=== PATIENT | female | born 1950 | race Caucasian/White ===

== ENCOUNTER → 2018-01-11 | Outpatient (CLI) | payer OTHER ==
[~2018-01-11] MED LIST: APIX2.5T PO; CEPH-375 PO; DOXY100T10 PO; ELIQUIS; ENOX100S5 SQ; FERR1TAB2 PO; FERR325T18 PO; LEVO500T47 PO; LISI-167 PO; METO25TA35 PO; METR500T PO; NITA500T2 PO; OMEP20CA9 PO; OMEP20TA62 PO; OXYC1TAB8 PO; RANI150T4 PO; RANITIDINE; RIVA10TA PO; SERT25TA PO; SUCR1ORA11 PO; TEMA15CA6 PO; TRAM50TA2 PO
[2018-01-11 15:17] LABS: BASOPHILS # (AUTO) 0.04 x10^3/uL (0-0.1); BASOPHILS % (AUTO) 1 % (0-1); EOSINOPHILS # (AUTO) 0.15 x10^3/uL (0-0.4); EOSINOPHILS % (AUTO) 2 % (1-7); LYMPHOCYTES # (AUTO) 1.28 x10^3/uL (1-3.4); LYMPHOCYTES % (AUTO) 18 % (22-44); MD NO; MEAN CORPUSCULAR HEMOGLOBIN 28.9 pg (27.0-34.8); MEAN CORPUSCULAR HGB CONC 33.7 g/dL (32.4-35.8); MEAN CORPUSCULAR VOLUME 85.6 fL (80-100); MEAN PLATELET VOLUME 7.1 fL (7.4-10.4); MONOCYTES # (AUTO) 0.45 x10^3/uL (0.2-0.8); MONOCYTES % (AUTO) 6 % (2-9); NEUTROPHILS % (AUTO) 74 % (42-75); PLATELET COUNT 302 x10^3/uL (130-400); RED BLOOD COUNT 4.99 x10^6/uL (3.82-5.3); RED CELL DISTRIBUTION WIDTH 14.1 % (9.6-15.2)
[2018-01-11 15:31] LABS: HCT (SEDRATE) 42.4 % (34.6-47.8)
[2018-01-11 15:33] LABS: INTERNATIONAL NORMALIZED RATIO 1.03 (0.93-1.1); PROTHROMBIN TIME 10.7 Seconds (9.6-11.5)
[2018-01-11 15:39] LABS: ALANINE AMINOTRANSFERASE 16 U/L (12-78); ALBUMIN 3.6 g/dL (3.4-5.0); ANION GAP 9 mmol/L (5-15); CALCIUM 8.3 mg/dL (8.5-10.1); CHLORIDE 105 mmol/L (98-107); CREATININE 0.85 mg/dL (0.55-1.02)
[2018-01-11 15:41] LABS: BILIRUBIN,TOTAL 0.2 mg/dL (0.2-1.0)
[2018-01-11 15:42] LABS: ALKALINE PHOSPHATASE 98 U/L (45-117); TOTAL PROTEIN 7.5 g/dL (6.4-8.2)
== END | disposition home or self-care (01) ==
LOC: STAR 13:54
PROVIDERS: ATTEND Orthopaedic Surgery Orthopaedic Surgery of the Spine
DX: Z01.818 Encounter for other preprocedural examination (principal); K44.9 Diaphragmatic hernia without obstruction or gangrene; M84.48XA Pathological fracture, other site, initial encounter for fracture
CPT/HCPCS: 36415; 71046; 80053; 80074; 85025; 85610; 85651; 85730; 87806; 93005; G0475

== ENCOUNTER → 2018-01-12 | Outpatient (CLI) | payer OTHER ==
[2018-01-12 08:49] LABS: MICROSCOPIC AUTO
[2018-01-12 08:53] LABS: CULTURE INDICATED? YES
== END | disposition home or self-care (01) ==
LOC: STAR 08:10
PROVIDERS: ATTEND Orthopaedic Surgery Orthopaedic Surgery of the Spine
DX: Z01.812 Encounter for preprocedural laboratory examination (principal); M48.54XA Collapsed vertebra, not elsewhere classified, thoracic region, initial encounter for fracture
CPT/HCPCS: 81001; 87077; 87086; 87186

== ENCOUNTER 2018-01-16 07:07 | Day surgery (SDC) | payer OTHER ==
[2018-01-15 13:23] LABS: MICROSCOPIC NOT IND
[~2018-01-16] VITALS: Ht 162.6 cm; Wt 98.7 kg
[~2018-01-16 07:07] MED LIST changes: +BUPIVACAINE/PF 0.5% ONE; +EPINEPHRINE 1 MG/ML, 1ML ONE; +LIDOCAINE-MPF 1%, 5ML ONE
[2018-01-16] MEDS ORDERED: LACTATED RINGERS 1,000 ML IV SCH (07:32)
[2018-01-16 07:50] VITALS: BP 141/80
[2018-01-16] MEDS ORDERED: PROPOFOL 10 MG/ML, 20ML ONE ×3 (11:18→11:20)
[2018-01-16] MEDS ORDERED: DEXAMETHASONE 4 MG/ML, 1ML ONE (11:18)
[2018-01-16] MEDS ORDERED: FENTANYL PF 100 MCG/2ML ONE ×2 (11:18→11:40)
[2018-01-16] MEDS ORDERED: ONDANSETRON 2MG/ML, 2ML ONE ×2 (11:18→11:20)
[2018-01-16] MEDS ORDERED: SUCCINYLCHOLINE 20 MG/ML, 10ML ONE ×2 (11:18→11:20)
[2018-01-16] MEDS ORDERED: MIDAZOLAM 1 MG/ML, 5ML ONE (11:19)
[2018-01-16] MEDS ORDERED: EPHEDRINE 50 MG/ML, 1ML ONE ×2 (11:20)
[2018-01-16] MEDS ORDERED: CEFAZOLIN 1,000 MG ONE ×2 (11:20)
[2018-01-16] MEDS ORDERED: OMNIPAQUE 180 MG/ML, 20ML VIAL ONE (12:21)
[2018-01-16] MEDS ORDERED: FENTANYL PF 100 MCG/2ML IV PRN (12:30)
[2018-01-16] MEDS ORDERED: ACETAMINOPHEN 325 MG TABLET PO PRN (12:30)
[2018-01-16] MEDS ORDERED: OXYcodone 5 MG/5 ML ORAL.SOL UDC PO PRN (12:30)
[2018-01-16] MEDS ORDERED: MIDAZOLAM 1 MG/ML, 2ML IV PRN (12:30)
[2018-01-16] MEDS ORDERED: ONDANSETRON 2MG/ML, 2ML IVPush PRN (12:30)
[2018-01-16] MEDS ORDERED: MEPERIDINE/PF 25MG/0.5ML IVPush PRN (12:30)
[2018-01-16] MEDS ORDERED: HYDROmorphone 1 MG/ML, 1ML IV PRN (12:30)
[2018-01-16] MEDS ORDERED: ACETAMINOPHEN 650 MG/20.3 ML UDC ONE (12:42)
[2018-01-16] MEDS ORDERED: OXYcodone 5 MG/5 ML ORAL.SOL UDC ONE (12:43)
== END 2018-01-16 15:00 | disposition home or self-care (01) ==
LOC: OUT 07:07
PROVIDERS: ATTEND Orthopaedic Surgery Orthopaedic Surgery of the Spine
DX: M80.88XA Other osteoporosis with current pathological fracture, vertebra(e), initial encounter for fracture (principal); Z88.0 Allergy status to penicillin; D64.9 Anemia, unspecified
CPT/HCPCS: 22513; 72072; 81003; 87086; 88307; 88311; C1713; J0171; J0330; J0690; J1100; J2250; J2405; J2704; J3010; J3490; J7120; Q9965

== ENCOUNTER 2020-05-12 12:36 | Outpatient (CLI) | payer MEDICARE ==
[~2020-05-12 12:36] MED LIST changes: -BUPIVACAINE/PF 0.5% ONE; -DOXY100T10 PO; +DOXY100T23 PO; -EPINEPHRINE 1 MG/ML, 1ML ONE; -LIDOCAINE-MPF 1%, 5ML ONE; -RIVA10TA PO; +RIVA10TA2 PO; -SUCR1ORA11 PO; +SUCR1ORA14 PO
== END 2020-05-12 23:59 | disposition home or self-care (01) ==
LOC: CFH 12:36
PROVIDERS: ATTEND Internal Medicine Cardiovascular Disease
DX: I08.1 Rheumatic disorders of both mitral and tricuspid valves (principal); E78.5 Hyperlipidemia, unspecified; I48.91 Unspecified atrial fibrillation; I10 Essential (primary) hypertension
CPT/HCPCS: 93306